=== PATIENT | female | born 1985 | race Caucasian/White ===

== ENCOUNTER 2024-07-12 13:03 | Day surgery (SDC) | payer OTHER ==
[~2024-07-12] VITALS: Ht 177.8 cm; Wt 71.5 kg
[2024-07-12] VITALS (7 sets, daily range): BP systolic 125–147; BP diastolic 60–92
[2024-07-12] MEDS ORDERED: CeFAZolin Sodium 2,000 MG in NS 100 ML IV SCH (13:45)
[2024-07-12] MEDS ORDERED: Lactated Ringer's 1,000 ML IV SCH (13:45)
[2024-07-12] MEDS ORDERED: CeFAZolin Sodium 2,000 MG VIAL ONE (14:01)
--- NOTE | 2024-07-12 14:29 | NUR ---
History, Chart, Medications and Allergies reviewed before start of procedure. Pre-Op teaching done. Pt verbalizes understanding. Patient confirms NPO status and agrees with scheduled surgery. PT BELONGINGS BAG PLACED UNDER GURNEY.
[2024-07-12] MEDS ORDERED: propofoL 20 ML IV ONE ×2 (15:16→15:38)
[2024-07-12] MEDS ORDERED: FentaNYL Citrate 50 MCG/ML 2 ML Injection ONE (15:16)
[2024-07-12] MEDS ORDERED: EpiNEPhrine 1 MG/1 ML 1ML Vial ONE (15:18)
[2024-07-12] MEDS ORDERED: Lidocaine 2%-Epineph 1:200000 20 ML SDV INJ ONE (15:25)
[2024-07-12] MEDS ORDERED: Ondansetron HCl 2 MG / ML 2ML Vial IV PRN (15:30)
[2024-07-12] MEDS ORDERED: HYDROmorphone HCl/Pf 1MG SYR IV PRN (15:30)
[2024-07-12] MEDS ORDERED: FentaNYL Citrate 50 MCG/ML 2 ML Injection IV PRN ×3 (15:30→15:35)
[2024-07-12] MEDS ORDERED: Ondansetron HCl 2 MG / ML 2ML Vial ONE (15:31)
[2024-07-12] MEDS ORDERED: Dexamethasone Sod Phos 10 MG/ML 1ML VIAL ONE (15:31)
[2024-07-12] MEDS ORDERED: Metoclopramide HCl 5MG / ML 2ML Vial IV PRN (15:35)
[2024-07-12] MEDS ORDERED: Ketorolac Tromethamine 30mg Vial ONE (16:12)
[2024-07-12] MEDS ORDERED: OxyCODONE HCL 5 MG TAB PO PRN (16:40)
--- NOTE | 2024-07-12 17:13 | NUR ---
Discharge instructions reviewed with patient. Patient verbalizes understanding. Copy given to patient to take home. POLAR PACK PROVIDED TO PT AND INSTRUCTED TO USE. PT TOLERATED PO WATER AND CHIPS. PT HAS PAIN RX AND INSTRUCTED TO GET ECASA AT TAKE DAILY. PT DRESSED AND AMBULATED TO BATHROOM.
== END 2024-07-12 17:20 | disposition home or self-care (01) ==
LOC: ORSCMMR 13:03 → ORD 14:45 → ORSCMMR 17:20
PROVIDERS: Orthopaedic Surgery
PROC: 0SBD4ZZ Excision of Left Knee Joint, Percutaneous Endoscopic Approach (ICD-10-PCS; principal; 2024-07-12 14:45)
DX: S83.242A Other tear of medial meniscus, current injury, left knee, initial encounter (principal); M23.42 Loose body in knee, left knee
CPT/HCPCS: A9270; J0171; J0690; J1100; J1885; J2405; J2704; J3010; J7120

== ENCOUNTER 2025-01-21 06:14 | Day surgery (SDC) | payer OTHER, BC ==
[~2025-01-21] VITALS: Ht 177.8 cm; Wt 72.6 kg
[~2025-01-21 06:14] MED LIST: Lactated Ringer's 1,000 ML IV ONE
[2025-01-21] MEDS ORDERED: NS 100 ML IV ONE (06:28)
[2025-01-21] MEDS ORDERED: Tranexamic Acid 100 ML IV ONE ×2 (06:28→10:24)
[2025-01-21] MEDS ORDERED: CeFAZolin Sodium 2,000 MG VIAL ONE ×2 (06:29→11:50)
[2025-01-21] MEDS ORDERED: Lactated Ringer's 1,000 ML IV ONE ×2 (06:48→10:21)
[2025-01-21] MEDS ORDERED: EPINEPhrine HCl 1 MG/ML 1ML Amp ONE ×2 (06:58→06:59)
[2025-01-21] MEDS ORDERED: propofoL 20 ML IV ONE (07:01)
[2025-01-21] MEDS ORDERED: FentaNYL Citrate 50 MCG/ML 2 ML Injection ONE ×2 (07:02→07:45)
[2025-01-21] MEDS ORDERED: Midazolam HCl 1MG / ML 2ML Vial ONE (07:02)
--- NOTE | 2025-01-21 07:05 | NUR ---
01/21/25 0705 Alexia Reddy AT BEDSIDE, CALL LIGHT IN REACH
[2025-01-21] MEDS ORDERED: Bupivacaine 0.5% HCl 5 MG/ML 30MLVIAL ONE (07:06)
[2025-01-21] MEDS ORDERED: HYDROmorphone HCl/Pf 1MG SYR ONE (07:45)
[2025-01-21] MEDS ORDERED: Dexamethasone Sod Phos 10 MG/ML 1ML VIAL ONE (08:09)
[2025-01-21] MEDS ORDERED: Ondansetron HCl 2 MG / ML 2ML Vial ONE ×2 (08:09→11:18)
[2025-01-21] MEDS ORDERED: Ketamine HCl 100 MG / ML 5ML Vial ONE (09:08)
[2025-01-21] MEDS ORDERED: Bupivacaine HCl 0.25% 50 ML Vial (NON CHARGE) INJ ONE (10:28)
--- NOTE | 2025-01-21 10:51 | NUR ---
01/21/25 1051 Peace Castaneda PT TO PACU WITH ORAL AIRWAY IN PLACE, REMOVED UPON ARRIVAL. PT DROWSY, AROUSABLE TO VOICE. PATIENT FOLLOWS COMMANDS AND ANSWERS QUESTIONS. PT PLACED ON 2L BNC AFTER PAIN MEDICATION ADMINISTERED BY MIC. REPORT RECEIVED FROM MIC AND RN. PT SUPINE, HOB FLAT, LEFT LEG ELEVATED ON PILLOW. CAP REFILL ON LEFT FOOT <3 SECONDS, LEFT TOES PINK, WARM, MOIST. LEFT PEDAL PULSE PALPABLE.
--- NOTE | 2025-01-21 11:23 | NUR ---
01/21/[address] AT BEDSIDE, VERBAL ORDER TO GIVE 2G ANCEF IV ONE TIME PRIOR TO DISCHARGE.
[2025-01-21] MEDS ORDERED: NS 50 ML IV ONE (11:53)
[2025-01-21] MEDS ORDERED: Metoclopramide HCl 5MG / ML 2ML Vial ONE (12:12)
[2025-01-21] MEDS ORDERED: OxyCODONE HCL 5 MG TAB ONE (12:20)
== END 2025-01-21 13:06 | disposition home or self-care (01) ==
LOC: ORSCSDS 06:14
PROVIDERS: Orthopaedic Surgery Sports Medicine
PROC: 0SUD4KZ Supplement Left Knee Joint with Nonautologous Tissue Substitute, Percutaneous Endoscopic Approach (ICD-10-PCS; principal; 2025-01-21 07:30)
PROC: 0MNP4ZZ Release Left Knee Bursa and Ligament, Percutaneous Endoscopic Approach (ICD-10-PCS; principal; 2025-01-21 07:30)
DX: S83.32XA Tear of articular cartilage of left knee, current, initial encounter (principal); M22.2X2 Patellofemoral disorders, left knee; Y93.01 Activity, walking, marching and hiking
CPT/HCPCS: A9270; C1713; C1762; J0171; J0690; J1100; J1171; J2250; J2405; J2704; J2765; J3010; J7120

== ENCOUNTER → 2025-05-03 | Outpatient (CLI) | payer BC ==
[2025-05-03 12:40] LABS: BASOPHILS ABSOLUTE AUTO 0.02 K/mm3 (0.00-0.23); BASOPHILS PERCENT AUTO 1 % (0-2); EOSINOPHILS ABSOLUTE AUTO 0.11 K/mm3 (0.00-0.68); EOSINOPHILS PERCENT AUTO 6 % (0-6); Hematocrit 43.8 % (33.0-51.0); Hemoglobin 15.4 g/dL (11.5-16.0); Mean Corpuscular HGB Conc 35.2 g/dL (31.5-36.5); Mean Corpuscular Volume 85 fL (80-100); NRBC ABSOLUTE 0.00 K/mm3 (0.00-0.02); NRBC Auto 0.0 /100 WBC (0.0-0.2); RDW Coefficient Variation 12.0 % (11.7-14.2); RDW Standard Deviation 37.3 fL (35.1-46.3)
[2025-05-03 12:47] LABS: IMMATURE GRAN ABSOLUTE AUTO 0.01 K/mm3 (0.00-0.10); IMMATURE GRAN PERCENT AUTO 1 % (0-1); LYMPHOCYTES ABSOLUTE AUTO 0.76 K/mm3 (0.84-5.20); LYMPHOCYTES PERCENT AUTO 39 % (21-46); MONOCYTES ABSOLUTE AUTO 0.12 K/mm3 (0.16-1.47); MONOCYTES PERCENT AUTO 6 % (4-13); NEUTROPHILS ABSOLUTE AUTO 0.94 K/mm3 (1.96-9.15); NEUTROPHILS PERCENT AUTO 48 % (41-73); Platelet Count 108 K/mm3 (150-400)
[2025-05-03 12:49] LABS: Alanine Aminotransfer (ALT/SGP 64.0 U/L (12-78); Albumin, Blood 3.9 g/dL (3.4-5.0); Albumin/Globulin Ratio 1.0 (0.8-1.8); Anion Gap 12.0 mmol/L (3-11); Aspartate Aminotrans (AST/SGOT 90.0 U/L (12-37); Bilirubin, Total 0.5 mg/dL (0.1-1.0); Blood Urea Nitrogen 7.0 mg/dL (8-24); CO2, Blood 31.0 mmol/L (21-32); Calcium, Blood 9.2 mg/dL (8.5-10.1); Chloride, Blood 97.0 mmol/L (98-108); Creatinine, Blood 0.89 mg/dL (0.40-1.00); Globulin, Blood 3.8 g/dL (2.2-4.0); Glucose, Blood 96.0 mg/dL (70-99); Potassium, Blood 3.4 mmol/L (3.5-5.5); Sodium, Blood 137.0 mmol/L (136-145); Total Protein, Blood 7.7 g/dL (6.4-8.2)
== END ==
LOC: LAB 12:35 → LAB SHORT 12:35
PROVIDERS: Emergency Medicine
DX: R11.0 Nausea (principal)
CPT/HCPCS: 80053; 83690; 85025

== ENCOUNTER 2025-06-10 11:01 | Day surgery (SDC) | payer BC ==
[~2025-06-10] VITALS: Ht 175.3 cm; Wt 70.2 kg
[2025-06-10] MEDS ORDERED: Ondansetron HCl 2 MG / ML 2ML Vial IV ONE (11:09)
[2025-06-10] MEDS ORDERED: Dexamethasone Sod Phos 10 MG/ML 1ML VIAL IV ONE (11:09)
[2025-06-10] MEDS ORDERED: Tranexamic Acid 100 ML IV ONE (11:22)
[2025-06-10] MEDS ORDERED: GALLIFREY5 MG PO (11:41)
[2025-06-10] MEDS ORDERED: Bupivacaine HCl 0.25% 30 ML Injection ONE (12:05)
[2025-06-10] MEDS ORDERED: Midazolam HCl 1MG / ML 2ML Vial ONE (12:06)
[2025-06-10] MEDS ORDERED: CeFAZolin Sodium 2,000 MG VIAL ONE (12:06)
[2025-06-10] MEDS ORDERED: FentaNYL Citrate 50 MCG/ML 2 ML Injection ONE ×2 (12:06→15:57)
--- NOTE | 2025-06-10 12:27 | NUR ---
06/10/25 1227 JIMMY TOBAR 1200 spouse at bedside
[2025-06-10] MEDS ORDERED: Lidocaine 1%-Epineph 1:200000 30 ML SDV ONE (12:42)
[2025-06-10] MEDS ORDERED: HYDROmorphone HCl/Pf 1MG SYR ONE (12:52)
[2025-06-10] MEDS ORDERED: Ketorolac Tromethamine 30mg Vial ONE (13:12)
[2025-06-10] MEDS ORDERED: Ondansetron HCl 2 MG / ML 2ML Vial ONE (15:26)
--- NOTE | 2025-06-10 15:28 | NUR ---
06/10/25 1528 Caren Howell PT TO SDU, PT C/O NAUSEA, WILL GIVE ZOFRAN 4MG IV PER ANESTHESIA ORDERS.
[2025-06-10] MEDS ORDERED: Metoclopramide HCl 5MG / ML 2ML Vial ONE (16:58)
== END 2025-06-10 18:29 | disposition home or self-care (01) ==
LOC: ORSCSDS 11:01
PROVIDERS: Orthopaedic Surgery Sports Medicine
PROC: 0SQC0ZZ Repair Right Knee Joint, Open Approach (ICD-10-PCS; principal; 2025-06-10 12:45)
PROC: 0SJC4ZZ Inspection of Right Knee Joint, Percutaneous Endoscopic Approach (ICD-10-PCS; principal; 2025-06-10 12:45)
DX: M25.861 Other specified joint disorders, right knee (principal); M25.561 Pain in right knee
CPT/HCPCS: A9270; C1762; J0166; J0690; J1100; J1171; J1885; J2250; J2405; J2704; J2765; J3010; J7120